=== PATIENT | female | born 1955 | race Caucasian/White ===

== ENCOUNTER 2018-03-30 12:40 | Emergency (ER) | payer MEDICAID ==
[2018-03-30] MEDS ORDERED: KETOROLAC 30 MG INJ (16:24)
[2018-03-30] MEDS: KETOROLAC 15 MG INJ IM (16:28)
== END 2018-03-30 17:56 | disposition home or self-care (01) ==
LOC: FTE 12:40
DX: M54.9 Dorsalgia, unspecified (principal); R40.2142 Coma scale, eyes open, spontaneous, at arrival to emergency department; R40.2252 Coma scale, best verbal response, oriented, at arrival to emergency department; R40.2362 Coma scale, best motor response, obeys commands, at arrival to emergency department; I10 Essential (primary) hypertension
CPT/HCPCS: 70450; 72072; 96372; 99285-25

== ENCOUNTER 2018-10-31 11:22 | Emergency (ER) | payer OTHER, MEDICAID | END 2018-10-31 15:17 | disposition home or self-care (01) | LOC: FTE 11:22 | DX: S52.512A Displaced fracture of left radial styloid process, initial encounter for closed fracture (principal); S39.92XA Unspecified injury of lower back, initial encounter; I10 Essential (primary) hypertension; W01.0XXA Fall on same level from slipping, tripping and stumbling without subsequent striking against object, initial encounter; Y92.9 Unspecified place or not applicable | CPT/HCPCS: 29125; 72072; 72100; 73110-LT; 99284-25 ==